=== PATIENT | female | born 1965 | race Caucasian/White ===

== ENCOUNTER 2022-05-28 13:21 | Outpatient (REF) | payer OTHER, SELFPAY ==
[2022-05-28 14:44] LABS: MANUAL DIFF FLAG NO
[2022-05-28 14:47] LABS: Basophils Percent Auto 0.5 % (0-2); Eosinophils Absolute Auto 0.1 X10*3/uL (0.0-0.4); Hematocrit 38.1 % (37.0-47.0); Hemoglobin 12.4 g/dl (12.0-16.0); Imm Gran Abs Auto 0.01 X10*3/uL (0.00-0.03); Imm Gran Pct Auto 0.2 % (0.0-0.4); Lymphocytes Absolute Auto 1.9 X10*3/uL (1.2-4.9); Lymphocytes Percent Auto 32.2 % (20-40); Mean Corpuscular HGB Conc 32.5 g/dl (31.0-35.0); Mean Corpuscular Hemoglobin 29.9 pg (27.0-33.0); Mean Corpuscular Volume 91.8 fL (80.0-98.0); Mean Platelet Volume 10.9 fL (9.4-12.3); Monocytes Absolute Auto 0.3 X10*3/uL (0.1-1.2); Monocytes Percent Auto 5.2 % (2-11); Neutrophils Absolute Auto 3.6 x10*3/uL (2.0-8.3); Neutrophils Percent Auto 60.9 % (45-73); Platelet Count 226 X10*3/uL (160-400); Red Blood Count 4.15 X10*6/uL (4.20-5.50); Red Cell Distribution Width 12.3 % (11.0-16.0)
[2022-05-28 16:17] LABS: Alanine Aminotransferase 11 U/L (0-31); Albumin Level 4.6 g/dL (3.5-5.0); Alkaline Phosphatase 114 U/L (39-117); Anion Gap 14 (12-20); Aspartate Amino Transferase 14 U/L (5-31); Bilirubin Total 0.4 mg/dL (0.0-1.0); Blood Urea Nitrogen 10 mg/dL (9-16); Calcium 9.6 mg/dL (8.4-10.2); Carbon Dioxide 27 mmol/L (22-29); Chloride 107 mmol/L (96-108); Estimated Glomerular Filt Rate > 60; Glucose Random 85 mg/dL (60-115); Potassium 4.3 mmol/L (3.3-5.1); Sodium 144 mmol/L (135-145); Total Protein 7.5 g/dL (6.5-8.0)
== END 2022-05-28 13:22 | disposition home or self-care (01) ==
LOC: HO.LAB 13:21
PROVIDERS: PCP Family Medicine Geriatric Medicine; Visit Provider Physician Assistant
DX: K83.8 Other specified diseases of biliary tract (principal); R10.9 Unspecified abdominal pain
CPT/HCPCS: 36415; 80053; 85025; 99202

== ENCOUNTER 2022-06-22 10:16 | Outpatient (REF) | payer OTHER, SELFPAY ==
--- NOTE | ~2022-06-22 | US_ITS ---
EXAMINATION: US ABDOMEN COMPLETE CLINICAL INFORMATION: Disease and biliary tract. COMPARISON: None TECHNIQUE: Real-time imaging of the abdominal viscera. FINDINGS: PANCREAS: Normal. ABDOMINAL AORTA: The proximal, mid, and distal segments are normal in caliber. INFERIOR VENA CAVA: Visualized portions are normal. LIVER: Normal. The liver is normal in size. The liver contour is normal. Parenchymal echogenicity is normal. No focal hepatic lesion. There is no intrahepatic biliary duct dilatation seen. GALLBLADDER: Gallbladder appears incompletely distended/partially contracted. Gallbladder wall is diffusely thickened measuring up to 0.7 cm in thickness. No echogenic shadowing gallstones are seen. No pericholecystic fluid. Question trace fluid/edema in the gallbladder wall. Small 5 mm anechoic cyst or diverticulum is noted in the wall the gallbladder as well. The patient did not have fatty sonographic Oates sign at time the examination per technologist report. COMMON BILE DUCT: Dilated measuring up to 0.9 cm in diameter. RIGHT KIDNEY: Normal. No hydronephrosis. No renal calculi or focal parenchymal lesions. The kidney measures 9 cm in maximum dimension. LEFT KIDNEY: Normal. No hydronephrosis or renal calculi. Small 1.9 cm anechoic simple cyst in the lower pole. The kidney measures 10.2 cm in maximum dimension. SPLEEN: Normal. The spleen measures 10.1 cm in maximum dimension. FREE FLUID: None. US/US abdomen complete IMPRESSION: 1. The gallbladder is incompletely distended with diffuse gallbladder wall thickening and question trace fluid/edema in the gallbladder wall. No shadowing gallstones are identified. The patient did not have a sonographic Oates sign at time of the examination. Correlate clinically for possibility of acalculous cholecystitis. 2. Mildly dilated common bile duct measuring up to 0.9 cm in diameter. Correlate with LFTs and consider further evaluation with MRCP or ERCP as clinically appropriate. 3. No intrahepatic biliary ductal dilation. 4. Normal sonographic appearance of the liver. 5. Small simple left renal cyst.
== END 2022-06-22 10:17 | disposition home or self-care (01) ==
LOC: HO.US 10:16
PROVIDERS: Visit Provider Physician Assistant
DX: K83.8 Other specified diseases of biliary tract (principal); R10.9 Unspecified abdominal pain
CPT/HCPCS: 76700

== ENCOUNTER 2022-12-05 08:41 | Outpatient (REF) | payer OTHER, SELFPAY ==
--- NOTE | ~2022-12-05 | US_ITS ---
EXAMINATION: US ABDOMEN COMPLETE CLINICAL INFORMATION: Dilated common bile duct. Abdominal pain. COMPARISON: Ultrasound abdomen complete 06/22/2022. TECHNIQUE: Real-time imaging of the abdominal viscera. FINDINGS: PANCREAS: Normal. ABDOMINAL AORTA: The proximal, mid, and distal segments are normal in caliber. INFERIOR VENA CAVA: Visualized portions are normal. LIVER: Normal. The liver is normal in size. The liver contour is normal. Parenchymal echogenicity is normal. No focal hepatic lesion. There is no intrahepatic biliary duct dilatation seen. GALLBLADDER: The gallbladder is contracted with no echogenic stones seen however limited. Gallbladder wall is thickened measuring 0.93 cm. Within the thickened king there are 5 mm anechoic cystic areas and calcification with adenomyomatosis. Findings suspicious for chronic acalculous cholecystitis. COMMON BILE DUCT: Normal in caliber measuring 1.0 cm in diameter distally and 0.68 cm proximally. RIGHT KIDNEY: Normal. No hydronephrosis. No renal calculi or focal parenchymal lesions. The kidney measures 9.7 cm in maximum dimension. LEFT KIDNEY: No hydronephrosis or renal calculi. The kidney measures 10.5 cm in maximum dimension. There is an anechoic cyst lower pole measuring 1.8 x 1.9 x 1.8 cm. SPLEEN: Normal. The spleen measures 10.2 cm in maximum dimension. FREE FLUID: None. US/US abdomen complete IMPRESSION: Contracted gallbladder with thickened king with cystic areas, calcification and adenomyomatosis. These findings are unchanged from previous ultrasound 06/22/2022 and may represent chronic cholecystitis or chronic gallbladder disease. Dilated distal CBD measuring 1 cm. Anechoic cyst lower pole left kidney.
== END 2022-12-05 08:42 | disposition home or self-care (01) ==
LOC: HO.HMGCX 08:41
PROVIDERS: PCP Registered Nurse; Visit Provider Physician Assistant
DX: K83.8 Other specified diseases of biliary tract (principal); R10.9 Unspecified abdominal pain
CPT/HCPCS: 76700

== ENCOUNTER 2022-12-24 12:57 | Outpatient (REF) | payer OTHER, SELFPAY ==
[2022-12-24 14:25] LABS: MANUAL DIFF FLAG NO
[2022-12-24 15:08] LABS: Basophils Percent Auto 0.4 % (0-2); Eosinophils Absolute Auto 0.2 X10*3/uL (0.0-0.4); Eosinophils Percent Auto 2.3 % (0-4); Hematocrit 40.9 % (37.0-47.0); Hemoglobin 13.2 g/dl (12.0-16.0); Imm Gran Abs Auto 0.02 X10*3/uL (0.00-0.03); Imm Gran Pct Auto 0.3 % (0.0-0.4); Lymphocytes Percent Auto 43.1 % (20-40); Mean Corpuscular HGB Conc 32.3 g/dl (31.0-35.0); Mean Corpuscular Hemoglobin 30.3 pg (27.0-33.0); Mean Corpuscular Volume 93.8 fL (80.0-98.0); Mean Platelet Volume 11.1 fL (9.4-12.3); Monocytes Absolute Auto 0.4 X10*3/uL (0.1-1.2); Monocytes Percent Auto 6.1 % (2-11); Neutrophils Absolute Auto 3.3 x10*3/uL (2.0-8.3); Neutrophils Percent Auto 47.8 % (45-73); Platelet Count 267 X10*3/uL (160-400); Red Blood Count 4.36 X10*6/uL (4.20-5.50); White Blood Count 6.9 X10*3/uL (4.8-10.8)
[2022-12-24 16:03] LABS: Alanine Aminotransferase 15 U/L (0-31); Albumin Level 4.5 g/dL (3.5-5.0); Alkaline Phosphatase 122 U/L (39-117); Anion Gap 10 (12-20); Aspartate Amino Transferase 17 U/L (5-31); Bilirubin Total 0.5 mg/dL (0.0-1.0); Blood Urea Nitrogen 16 mg/dL (9-16); Calcium 9.5 mg/dL (8.4-10.2); Carbon Dioxide 28 mmol/L (22-29); Chloride 109 mmol/L (96-108); Estimated Glomerular Filt Rate > 60; Glucose Random 73 mg/dL (60-115); Potassium 4.6 mmol/L (3.3-5.1); Sodium 142 mmol/L (135-145); Total Protein 7.4 g/dL (6.5-8.0)
== END 2022-12-24 12:58 | disposition home or self-care (01) ==
LOC: HO.LAB 12:57
PROVIDERS: PCP Registered Nurse; Visit Provider Physician Assistant
DX: R10.9 Unspecified abdominal pain (principal); K83.8 Other specified diseases of biliary tract; K58.9 Irritable bowel syndrome, unspecified
CPT/HCPCS: 36415; 80053; 85025; 99212

== ENCOUNTER → 2023-02-06 07:52 | Outpatient (REF) | payer OTHER, SELFPAY ==
--- NOTE | ~2023-02-06 | NM_ITS ---
EXAMINATION: BILIARY TRACT IMAGING STUDY WITH CCK CLINICAL INFORMATION: Unspecified abdominal pain.. COMPARISON: No previous biliary scan is available for comparison. Abdominal ultrasound dated 12/05/2022 is available for comparison.. TECHNIQUE: Serial gamma scintillation camera images were obtained over the abdomen for a total observation period of 90 minutes following the intravenous administration of 5 mCi Tc-99m Mebrofenin. FINDINGS: There is good concentration of activity in the liver by 5 minutes post injection. Biliary activity is visualized by 10 minutes. The gallbladder is well visualized by 25 minutes. Small bowel is well visualized by 20 minutes. At 60 minutes post radiopharmaceutical injection, a 30-minute infusion of 1.5 micrograms Sincalide was then begun and an additional 40 minutes of images were obtained. There is good emptying of the gallbladder. By the end of the study there is good clearance of activity from the liver and visualization of diffuse small bowel activity. The calculated gallbladder ejection fraction is 56% (normal gallbladder ejection fraction is greater than 35%). NM/NM hepatobiliary w pharm IMPRESSION: Visualization of the gallbladder is evidence of a patent cystic duct and strong evidence against the diagnosis of acute cholecystitis. The common bile duct is patent. Gallbladder emptying and ejection fraction are normal. Liver function appears normal.
== END ==
LOC: HO.NUCMED 07:52
PROVIDERS: Visit Provider Physician Assistant
DX: R10.9 Unspecified abdominal pain (principal); K83.8 Other specified diseases of biliary tract
CPT/HCPCS: 78227; A9537; J2805

== ENCOUNTER 2023-03-11 14:31 | Outpatient (AMB) | payer OTHER, SELFPAY ==
--- NOTE | 2023-03-11 14:33 | A.OFFVIS_ITS ---
Intake Vital Signs 03/11/23 14:43 Height 5 ft 3 in Weight 159 lb BMI 28.2 BP 134/65 Blood Pressure Location Lt brachial Position Sitting Pulse 56 Intake Visit Reasons: f/u hida scan Intake Note: Patient follow up for HIDA scan results. Patient cc: acid reflex and denies any other GI issues. Church History Professor Required: No Accompanied by: Self / Same As Patient Allergies ibuprofen [Motrin] Allergy (Unknown, Verified 03/11/23 14:33) upset stomach No Known Allergies [No Known Allergies*] Allergy (Verified 03/11/23 14:33) Medication List - Last Reconciled 03/11/23 by Caron Griffin PA-C acetaminophen ER (Arthritis Pain Relief (acetaminophen) ER) 650 mg PO Q8H cetirizine 10 mg PO DAILY diclofenac sodium 1% 2 grams topical QID fluoxetine 40 mg PO QAM prazosin 0 mg PO quetiapine 100 mg PO BEDTIME quetiapine 200 mg PO BEDTIME zolpidem 10 mg PO BEDTIME PRN HPI HPI Comments History of Present Illness Details A 57 y/o female with vague GI complaints- abnormal U/S mildly dilated CBD- reviewed with Dr. Gudino- f/u after HIDA She has a good appetite- intermittent reflux Last colonoscopy 2016 inadequate prep- Sometimes abdominal pain comes and go wonders, nothing specific makes it better or worse. No nausea or vomiting has not had fever or chills-no weight loss PFSH Surgical History Hx of knee surgery Hx of shoulder surgery Hx of tubal ligation Family History Mother Heart disease Breast CA Sister Cancer Social History Household Members: Family Alcohol intake: never Patient Tobacco Use Status: Never used Tobacco Substance Use Type: Marijuana Review of Systems Const All systems reviewed & are unremarkable except as noted in HPI and below Card Denies chest pain and Denies dyspnea Resp Denies dyspnea GI Reports abdominal pain, Denies hematochezia, Denies change in bowel habits, Denies nausea and Denies vomiting Psych Reports anxiety Physical Exam Vital Signs: Last Vital Signs Pulse 56 03/11/23 14:43 BP 134/65 03/11/23 14:43 BMI result Body Mass Index 28.2 Const General: healthy appearing and comfortable Orientation/consciousness: patient oriented x3 Limitations: no limitations GI Palpation (GI): Soft to palpation and Tenderness to palpation present (GI) (mild non specific) Skin General skin exam: no rashes or lesions noted Neuro General: patient oriented x3 Extrem General: Yes full ROM Psych Appearance: grossly normal Mental Status: mental status grossly normal Speech and movement: Normal speech and movement present Affect: normal affect Attitude: cooperative Thought content: Normal thought content present Results Reviewed Results Reviewed: GALLBLADDER: The gallbladder is contracted with no echogenic stones seen however limited. Gallbladder wall is thickened measuring 0.93 cm. Within the thickened king there are 5 mm anechoic cystic areas and calcification with adenomyomatosis. Findings suspicious for chronic acalculous cholecystiti12/24/22- f/u with- NM/NM hepatobiliary w pharm IMPRESSION: Visualization of the gallbladder is evidence of a patent cystic duct and strong evidence against the diagnosis of acute cholecystitis. The common bile duct is patent. Gallbladder emptying and ejection fraction are normal. Liver function appears normal. Assessment & Plan Assessment & Plan (1) Abdominal pain: Comment: note to T-agree his weight until EGD/colonoscopy ppi EGD/ colo Code(s): R10.9 - Unspecified abdominal pain Plan: EGD colonoscopy Discussed procedure, the risks, need for escort due to anesthesia (2) Dilated cbd, acquired: Comment: Dilated CBD, normal liver enzymes CT at [facility]-will get ultrasound repeat labs, if liver enzymes are elevated will get MRCP Code(s): K83.8 - Other specified diseases of biliary tract Plan EGD/ col- DR. GUDINO pls MiraLax Gatorade prep ppi Orders: Orders EGD/[place] Combo - GI Use Only 03/11/23 Medications: New omeprazole 20 mg PO DAILY 30 caps 5RF bisacodyl (Dulcolax (bisacodyl)) Take 2 tablets by mouth at 12:00pm the day before your procedure. 10 mg (2 x 5 mg) PO ONCE 2 tabs 0RF colonoscopy prep 1 day Z12.11 - Encounter for screening for malignant neoplasm of colon polyethylene glycol 3350 (Miralax) Take as directed by mouth the day before your procedure. 238 grams PO ONCE 238 grams 0RF 1 day Patient Instructions: 57-year-old female chronic abdominal pain-reviewed ultrasound dilated CBD, HIDA scan within normal range normal liver enzymes. Acid reflux, daily PPI, avoid culprits, reviewed reflux precautions Due for colonoscopy Will schedule for EGD and colon discussed procedures, risks, need for escort due to anesthesia. Encouraged to call with questions or concerns Coding Level of Care Code Est Pt Level 4 (29443) Diagnoses Abdominal pain R10.9 Dilated cbd, acquired K83.8 Time Spent (min) 30
[2023-03-11 14:43] VITALS: BP 134/65; PULSE 56; BMI 28.2
== END 2023-03-11 15:47 | disposition home or self-care (01) ==
PROVIDERS: PCP Registered Nurse; Visit Provider Physician Assistant
DX: R10.9 Unspecified abdominal pain (principal); K83.8 Other specified diseases of biliary tract
CPT/HCPCS: 99214

== ENCOUNTER → 2023-03-11 14:31 | Outpatient (BNVA) | payer OTHER, SELFPAY | PROVIDERS: PCP Registered Nurse; Visit Provider Physician Assistant | DX: K83.8 Other specified diseases of biliary tract (principal); R10.9 Unspecified abdominal pain | CPT/HCPCS: 99212 ==

== ENCOUNTER 2025-02-12 12:45 | Outpatient (AMB) | payer OTHER, SELFPAY ==
--- NOTE | 2025-02-12 12:52 | A.OFFVIS_ITS ---
Vital Signs 02/12/25 13:03 Height 5 ft 3 in Weight 153 lb BMI 27.1 BP 118/62 Blood Pressure Location Lt brachial Position Sitting Pulse 58 Pulse Source Pulse Oximeter Pulse Oximetry (%) 100 Oxygen Delivery Method Room Air Intake Visit Reasons: pre colonoscopy/Caron pt Intake Note: Patient complex follow up for colonoscopy screening. Caron jonah was 03/11/2023. Patient cc: Instructional Developer Required: Yes Instructional Developer Services: Instructional Developer Offered & Declined Accompanied by: Daughter Allergies ibuprofen [Motrin] Allergy (Unknown, Verified 02/12/25 12:53) upset stomach Medication List - Last Reconciled 02/12/25 by Lesley Nelson CNP acetaminophen ER (Arthritis Pain Relief (acetaminophen) ER) 650 mg PO Q8H bisacodyl 5 mg PO ONCE 1 day budesonide-formoterol 80-4.5 mcg/actuation inhalation cetirizine 10 mg PO DAILY cholecalciferol (vitamin D3) (Vitamin D3) 25 mcg PO DAILY clonazepam mg PO diclofenac sodium 1% 2 grams topical QID famotidine 20 mg PO DAILY PRN fluoxetine 40 mg PO QAM fluticasone propionate 50 mcg/actuation intranasal omeprazole 20 mg PO DAILY polyethylene glycol 3350 (Miralax) 238 grams PO ONCE prazosin 10 mg PO BEDTIME quetiapine 300 mg PO BID Saccharomyces boulardii (Probiotic (S.boulardii)) 250 mg PO BID sennosides (senna) 8.6 - 17.2 mg PO BEDTIME PRN zolpidem 10 mg PO BEDTIME PRN HPI HPI pre colonoscopy/Caron pt: Details: Patient is a 59-year-old female with PMH of obesity, asthma, insomnia, anxiety and GERD . Last visit with JOSELYN Hilton 03/11/2023 for follow-up after ultra sound. Patient is accompanied by daughter who translating during this visit. She is here today for ab pain and pre-colonoscopy screening. Colonoscopy was previously scheduled in 2023 but was not completed, secondary to patient's fears. Patient is agreeable to proceed with colonoscopy screening at this time. This will be her second colonoscopy; however the first in 2016 was not complete due to poor prep. Victoria reports ongoing acid reflux and abdominal pain, with intermittent episodes of vomiting without burning sensations. Last month, she experienced three days where she could not eat due to vomiting after certain foods, and reported her stomach felt swollen and hard to touch. The pain and vomiting seem to be sporadic but associated with the ingestion of specific, yet unidentified, foods. She denies blood in vomit but reports a decrease in appetite during symptomatic days. Victoria's symptoms began back in 2022 with similar complaints, and she is currently an unidentified medication sporadically for relief. She also reports loose stools during pain bouts and otherwise normal type 4 stools, but no blood in stool or hemorrhoids. Past imaging has shown some concerns regarding gallbladder inflammation, but follow-up scans indicated no acute issues. Patient denies: fever/chills, appetite changes, pyrosis, dysphasia, unintentional wt loss, ab pain, or melena/hematochezia. She has a history of asthma, managed with an inhaler prescribed by her PCP, and reports stable respiratory status without recent exacerbations. SOCIAL HISTORY: - Diet: Inconsistent breakfast intake; breakfast often triggers GI symptoms - Alcohol: Denies - Tobacco: Denies - Drug Use: Daily marijuana (inhaled) - family hx as below -denies personal hx of CA -tolerated anesthesia in the past without difficulty. FOR[facility]LY [facility], [facility] Medical History (Updated 02/12/25 @ 13:57 by Lesley Nelson CNP) Colon cancer screening GERD (gastroesophageal reflux disease) Abdominal pain Surgical History History of esophagogastroduodenoscopy (EGD) H/O colonoscopy Hx of knee surgery Hx of tubal ligation Hx of shoulder surgery Family History (Updated 02/12/25 @ 13:30 by Lesley Nelson CNP) Mother Heart disease Breast CA Sister Cancer Social History Household Members: Family Alcohol intake: never Patient Tobacco Use Status: Never used Tobacco Substance Use Type: Marijuana Review of Systems Const Reports as per HPI ENT Reports as per HPI Card Reports as per HPI Resp Reports as per HPI GI Reports as per HPI Reports as per HPI Physical Exam Vital Signs: Last Vital Signs Pulse 58 02/12/25 13:03 BP 118/62 02/12/25 13:03 Pulse Ox 100 02/12/25 13:03 Oxygen Delivery Method Room Air 02/12/25 13:03 BMI result Body Mass Index 27.1 Const General: healthy appearing, no acute distress and well developed Nutritional Appearance: well nourished Orientation/consciousness: patient oriented x3 HEENT Head: Yes normal to inspection, Yes normocephalic and Yes atraumatic Face and sinus: Yes normal facial exam Eyes General: appearance normal, both eyes and all related structures Neck Neck: Yes normal visual inspection Resp Effort & Inspection: normal respiratory effort, able to speak in complete sentences, no tracheal deviation and symmetric chest movement Auscultation: clear to auscultation bilaterally Cardio Jugular venous distension: no JVD Rate: regular rate Rhythm: regular rhythm Heart sounds: S1 normal heart sound present, S2 normal heart sound present, no gallops and no murmurs GI Inspection: Yes normal to inspection, No distended and Yes other (mild ab bloating) Palpation (GI): Soft to palpation, not firm, Tenderness to palpation present (GI) (generalized ) and No hepatosplenomegaly present Auscultation: normal bowel sounds Neuro General: patient oriented x3 Gait exam (Neuro): Normal gait present Psych Appearance: grossly normal Mental Status: mental status grossly normal Speech and movement: Normal speech and movement present Affect: normal affect Attitude: cooperative Thought process: Normal thought process present Thought content: Normal thought content present Insight: Good insight present (Psych) Judgement: Good judgement present (Psych) Results Reviewed Results Reviewed: Date of Service: 02/06/23 Procedure(s): NM hepatobiliary w pharm Accession Number(s): [id number] cc: Caron Griffin PA-C~ EXAMINATION: BILIARY TRACT IMAGING STUDY WITH CCK CLINICAL INFORMATION: Unspecified abdominal pain.. COMPARISON: No previous biliary scan is available for comparison. Abdominal ultrasound dated 12/05/2022 is available for comparison.. TECHNIQUE: Serial gamma scintillation camera images were obtained over the abdomen for a total observation period of 90 minutes following the intravenous administration of 5 mCi Tc-99m Mebrofenin. FINDINGS: There is good concentration of activity in the liver by 5 minutes post injection. Biliary activity is visualized by 10 minutes. The gallbladder is well visualized by 25 minutes. Small bowel is well visualized by 20 minutes. At 60 minutes post radiopharmaceutical injection, a 30-minute infusion of 1.5 micrograms Sincalide was then begun and an additional 40 minutes of images were obtained. There is good emptying of the gallbladder. By the end of the study there is good clearance of activity from the liver and visualization of diffuse small bowel activity. The calculated gallbladder ejection fraction is 56% (normal gallbladder ejection fraction is greater than 35%). NM/NM hepatobiliary w pharm IMPRESSION: Visualization of the gallbladder is evidence of a patent cystic duct and strong evidence against the diagnosis of acute cholecystitis. The common bile duct is patent. Gallbladder emptying and ejection fraction are normal. Liver function appears normal. Date of Service: 12/05/22 Procedure(s): US abdomen complete Accession Number(s): [id number] cc: Caron Griffin EXAMINATION: US ABDOMEN COMPLETE CLINICAL INFORMATION: Dilated common bile duct. Abdominal pain. COMPARISON: Ultrasound abdomen complete 06/22/2022. TECHNIQUE: Real-time imaging of the abdominal viscera. FINDINGS: PANCREAS: Normal. ABDOMINAL AORTA: The proximal, mid, and distal segments are normal in caliber. INFERIOR VENA CAVA: Visualized portions are normal. LIVER: Normal. The liver is normal in size. The liver contour is normal. Parenchymal echogenicity is normal. No focal hepatic lesion. There is no intrahepatic biliary duct dilatation seen. GALLBLADDER: The gallbladder is contracted with no echogenic stones seen however limited. Gallbladder wall is thickened measuring 0.93 cm. Within the thickened king there are 5 mm anechoic cystic areas and calcification with adenomyomatosis. Findings suspicious for chronic acalculous cholecystitis. COMMON BILE DUCT: Normal in caliber measuring 1.0 cm in diameter distally and 0.68 cm proximally. RIGHT KIDNEY: Normal. No hydronephrosis. No renal calculi or focal parenchymal lesions. The kidney measures 9.7 cm in maximum dimension. LEFT KIDNEY: No hydronephrosis or renal calculi. The kidney measures 10.5 cm in maximum dimension. There is an anechoic cyst lower pole measuring 1.8 x 1.9 x 1.8 cm. SPLEEN: Normal. The spleen measures 10.2 cm in maximum dimension. FREE FLUID: None. US/US abdomen complete IMPRESSION: Contracted gallbladder with thickened king with cystic areas, calcification and adenomyomatosis. These findings are unchanged from previous ultrasound 06/22/2022 and may represent chronic cholecystitis or chronic gallbladder disease. Dilated distal CBD measuring 1 cm. Anechoic cyst lower pole left kidney. Assessment & Plan Assessment & Plan (1) Colon cancer screening: Comment: 04/05/2016 colonoscopy ( Dr. Tanner)-incomplete secondary to poor prep Code(s): Z12.11 - Encounter for screening for malignant neoplasm of colon Category: Medical Plan: Colonoscopy previously scheduled but not completed; patient due for routine screening and evaluation of GI symptoms. Medications: -prescriptions for laxative tablets and MiraLax sent to pharmacy; instructions for Gatorade purchase and clear liquid diet given. Patient educated on scheduling process, procedure preparation, including avoiding certain foods and ensuring clear liquid intake Advised on necessity for ride post-procedure due to sedation. (2) Abdominal pain: Comment: 04/05/16 EGD-hiatal hernia Code(s): R10.9 - Unspecified abdominal pain Category: Medical Qualifiers: Abdominal location: epigastric Qualified Code(s): R10.13 - Epigastric pain Plan: Ongoing upper GI symptoms with episodic vomiting, abdominal pain, and stool changes. Previous imaging (December 2022 US) showed mild CBD dilation; January 2023 HIDA scan was normal. Additional Tests: - CT abd/pelvis with IV and PO contrast for further evaluation of abdominal pain and to assess other GI organs beyond prior US - Upper endoscopy (EGD) at time of colonoscopy to assess for esophagitis, gastritis, polyps, or neoplastic changes - Labs: Renal function (prior to contrast), inflammatory markers - Stool studies for inflammation Medications: - Start omeprazole 20mg PO daily - Famotidine PRN for breakthrough symptoms Encouraged to take omeprazole as prescribed, taken at least 30-60 minutes before a meal. Education on GERD prevention : -Advised against heavy meals; encouraged small, frequent meals instead of large ones. - Instructed to remain upright for 2?3 hours after eating. - Advised to avoid late-night meals, spicy foods, caffeine, alcohol, known dietary triggers, and tight-fitting clothing. - Emphasis placed on gradual implementation of lifestyle changes to improve adherence and symptom control. Plan follow up 8 weeks or sooner as needed Time: I spent a total of 45 minutes on the date of encounter which includes: Preparing to see the patient (reviewed previous documentation, test results and medical history) Performing a medically appropriate exam and/or evaluation Ordering medications, tests, and procedures Documenting clinical information in the health record Orders: Orders Comprehensive [place]. Panel Fast Today R10.9 - Unspecified abdominal pain Calprotectin, Fecal Today R19.7 - Diarrhea, unspecified C Reactive Protein Today R10.9 - Unspecified abdominal pain CT abdomen pelvis w IV con Today R10.9 - Unspecified abdominal pain Complete Blood Count Auto Diff Today R10.9 - Unspecified abdominal pain IRON PROFILE Today R10.9 - Unspecified abdominal pain Transglutaminase IgA Today R10.9 - Unspecified abdominal pain Medications: New polyethylene glycol 3350 (Miralax) per colonoscopy prep instructions 238 grams PO ONCE 238 grams 0RF omeprazole Take one tablet daily. Best taken 30 minutes before meal 20 mg PO DAILY 90 caps 1RF famotidine Take one tablet daily as needed for acid reflux 20 mg PO DAILY PRN 90 tabs 1RF GERD bisacodyl Take four tablets once for 1 day per colonoscopy instructions 5 mg PO ONCE 1 day 4 tabs 0RF Coding Level of Care Code Established Pt Est Pt Level 4 (05985) Patient Type Established Diagnoses Colon cancer screening Z12.11 Epigastric pain R10.13 Abdominal location: epigastric
[2025-02-12 13:03] VITALS: BP 118/62; PULSE 58; O2SAT 100; BMI 27.1
--- OUTSIDE RECORDS SUMMARY | 2025-02-12 13:12 | XMS_ITS | Data Portability ---
Author Organization [employer], [facility] Address [address] [place] [address] Care Team Providers Care Oil Well Shooter Name Role Phone HIM CCA OTHER Assessment Encounter Date Assessment Date Assessment LastModified by Organization Details LastModified Time 11/11/2024 11/11/2024 I have reviewed and agree with the Assessment and Plan as documented by the Filter Tender Jelly. I provided real-time medical direction via phone for this encounter, and was available for additional phone based assistance as needed. I would add/emphasize: Patient seen for 1 day of NVD and post emesis epigastric discomfort. Seems to be improving. Has has similar e/o in past. Now tolerating PO soup. Epigastric pain described as burning and c/w hx of GERD for which she is on PPI. AVSS and well appearing per report. COVID/Flu run by medic negative. Given minimal abd TTP, reassuring vitals and exam doubt acute life threatening abdominal process. SUspect most likely self limiting GI illness. Pt desirous of home management. Will add sucrafate PRN to GI regimen. Encourage pushing small volume frequent fluids and monitoring of sxs at home. Red flags for ED presentation reviewed by medic. Entirety of visit conducted with the aid of medical language specialist (Grenadian) pallfather Not available 11/11/2024 17:57:49 11/17/2024 11/17/2024 I provided real -time medical direction via phone for this encounter, and was available for additional phone based assistance as needed. I have reviewed and agree with the Assessment and Plan as documented by the Filter Tender Jelly. We discussed the diagnostic uncertainty of home visits and the risk associated with this. In this case the patient and I felt this to be an acceptable and reasonable amount of risk given the benefit of avoiding an ED visit. Advised cannot tell what is causing the rash- can treat s/s. The patient given the opportunity to ask questions. Advised close f/u with pcp may need derm or allergy referral- if develops difficulty swallowing swollen lips/tongue/CP/s evere SOB/turning blue/uncontrolle d n/v/d AMS/ syncope/ hi fever to call 911- verbalized understanding of instruction [email or web address] Not available 11/17/2024 13:09:13 Plan of Treatment Reminders Order Date Submit Date Provider Last Modified By Organization Details Last Modified Time Details Appointments None recorded. Lab rapid SARS CoV 2 Ag, QL IA, respiratory specimen 2024 025 [facility], [address] [place] [address], [phone] 5 16:13:35 rapid flu (A+B) [address], [address] 5 16:13:54 cmp, whole blood + beny [address], [address] 19:18:47 Referral None recorded. Procedures None recorded. Surgeries None recorded. Imaging None recorded. Medication Orders prednisone 20 mg tablet 2024 025 [email or web address] [id number] [address] [place], [address], 5 13:06:51 prednisone 20 mg tablet 2024 025 [id number] [address] [place], [address], 5 13:06:53 hydroxyzine HCl 25 mg tablet 2024 025 [facility] #[id number], [address] [place], [address], 5 13:06:53 triamcinolo ne acetonide 0.1 % topical ointment 2024 025 [facility] #[id number], [address] [place], [address], 5 13:06:54 sucralfate 100 mg/mL oral suspension 2024 025 [facility] #[id number], [address] [place], [address], 5 16:07:43 ondansetron HCl (PF) 4 mg/2 mL injection solution 2021 022 [email or web address] Not available 19:17:11 Imodium A-D 2 mg capsule 2021 022 [email or web address] Not available 19:17:11 ondansetron 4 mg disintegrat ing tablet 2021 022 [facility] #[id number], [address] [place], [address], 19:17:13 Patient TargetsNo targets recorded. Patient InstructionsNo instructions recorded. Reason for Referral None Reported. Results Created Date Observation Date Name Description Value Unit Range Abnormal Flag Note LastModifiedBy Organization Detail LastModifiedTime 03/02/20 22 03/02/2022 cmp, whole blood + picco lo ALB 4.3 Not Available [facility] - [facility] [address], [address] 03/02/2022 19:17:18 03/02/20 22 03/02/2022 cmp, whole blood + picco lo ALP 129 Not Available [facility] [address], [address] 03/02/2022 19:17:18 03/02/20 22 03/02/2022 cmp, whole blood + picco lo ALT 12 Not Available [facility] [address], [address] 03/02/2022 19:17:18 03/02/20 22 03/02/2022 cmp, whole blood + picco lo AST 26 Not Available [facility] [address], [address] 03/02/2022 19:17:18 03/02/20 22 03/02/2022 cmp, whole blood + picco lo BUN 13 Not Available [facility] [address], [address] 03/02/2022 19:17:18 03/02/20 22 03/02/2022 cmp, whole blood + picco lo Ca 9.8 Not Available [facility] [address], [address] 03/02/2022 19:17:18 03/02/20 22 03/02/2022 cmp, whole blood + picco lo CI- normal Not Available [facility] [address], [address] 03/02/2022 19:17:18 03/02/20 22 03/02/2022 cmp, whole blood + picco lo CRE 0.9 Not Available [facility] [address], [address] 03/02/2022 19:17:18 03/02/20 22 03/02/2022 cmp, whole blood + picco lo GLU 96 Not Available [facility] [address], [address] 03/02/2022 19:17:18 03/02/20 22 03/02/2022 cmp, whole blood + picco lo K+ 3.6 Not Available [facility] [address], [address] 03/02/2022 19:17:18 03/02/20 22 03/02/2022 cmp, whole blood + picco lo Na+ 146 Not Available [facility] [address], [address] 03/02/2022 19:17:18 03/02/20 22 03/02/2022 cmp, whole blood + picco lo TBIL 0.7 Not Available [facility] [address], [address] 03/02/2022 19:17:18 03/02/20 22 03/02/2022 cmp, whole blood + picco lo tCO2 24 Not Available [facility] [address], [address] 03/02/2022 19:17:18 03/02/20 22 03/02/2022 cmp, whole blood + picco lo TP 8.4 Not Available [facility] [address], [address] 03/02/2022 19:17:18 11/12/19 25 11/11/2024 rapid flu (A+B) Flu negati ve Not Available [facility] - [facility] [address] [place] [address], [phone] 11/11/2024 15:04:36 11/12/19 25 11/11/2024 rapid SARS CoV 2 Ag, QL IA, respi rator y speci men rapid SARS CoV 2 Ag, QL IA, respiratory specimen negati ve Not Available [facility] - [facility] [address] [place] [address], [phone] 11/11/2024 15:04:32 Result Notes None recorded. Medical Equipment None Reported. Allergies No known drug allergies Medications Name Sig Start Date Stop Date Status Note LastModified by Organization Details LastModified Time fluoxetine 40 mg capsule TOME 2 C PSULAS POR V A ORAL TODOS LOS D EN LA MA ART active Not Available Not Available No t Available ketoconazole 2 % shampoo APPLY TO AFFECTED SKIN, LEAVE ON FOR 5 MINUTES, THEN RINSE EXTERNALLY ONCE A DAY 3 DAYS active Not Available Not Available No t Available quetiapine 300 mg tablet TOME 1 TABLETA POR V A ORAL DOS VECES AL D A active Not Available Not Available No t Available cetirizine 10 mg tablet TOME 1 TABLETA POR V A ORAL TODOS LOS D FOR 90 DAYS active Not Available Not Available No t Available senna 8.6 mg tablet TOME CONNER O DOS TABLETAS POR V A ORAL AL ACOSTARSE CUANDO SEA NECESARIO FOR CONSTIPATIO N active Not Available Not Available No t Available sucralfate 100 mg/mL oral suspension TAKE 10 ML POR V A ORAL DOS VECES AL D A CUANDO SEA NECESARIO active Not Available Not Available No t Available meloxicam 15 mg tablet TOME CONNER TABLETA TODOS LOS D CUANDO SEA NECESARIO FOR 30 DAYS active Not Available Not Available Not Available prednisone 20 mg tablet TOME DOS TABLETAS POR V A ORAL TODOS LOS D CON ALIMENTO POR 5 D active Not Available Not Available N ot Available clonazepam 0.5 mg tablet TOME 1 TABLETA POR V A ORAL SANDRA VECES AL D A CUANDO SEA NECESARIO active Not Available Not Available No t Available quetiapine 200 mg tablet TOME 1 TABLETA POR V A ORAL DOS VECES AL D A active Not Available Not Available No t Available omeprazole 40 mg capsule,ainsley yed release TOME CONNER C PSULA TODOS LOS D FOR 30 DAYS active Not Available Not Available Not Available quetiapine 100 mg tablet TOME CONNER TABLETA TODOS LOS D EN LA MA ART active Not Available Not Available No t Available prazosin 5 mg capsule TOME 2 C PSULAS POR V A ORAL TODOS LOS D AL ACOSTARSE active Not Available Not Available No t Available famotidine 20 mg tablet TAKE 1 TABLET NEEDED FOR REFLUX/ACID ORALLY TWICE A DAY 30 DAYS active Not Available Not Available No t Available pantoprazole 40 mg tablet,delay ed release TOME CONNER TABLETA TODOS LOS D FOR 30 DAYS active Not Available Not Available No t Available triamcinolon e acetonide 0.1 % topical ointment APPLY A THIN LAYER TOPICALLY TO AFFECTED AREA TWO TIMES A DAY FOR 7 DAYS active Not Available Not Available N ot Available clotrimazole -betamethaso ne 1 %-0.05 % topical cream APLIQUE AL JORGE AFECTADA DOS VECES AL D A FOR 2 WEEKS AND SURROUNDING AREAS active Not Available Not Available No t Available Gas Relief Extra Strength 125 mg capsule TOME 1 C PSULA POR V A ORAL CUATRO VECES AL JOANA DESPUES DE LAS COMIDAS ANA NECESARIO PARA GASES. active Not Available Not Available Not Available hydroxyzine HCl 25 mg tablet TOME 1 TABLETA POR V A ORAL CUATRO VECES AL D A POR 7 D active Not Available Not Available No t Available zolpidem 10 mg tablet TOME 1 TABLETA POR V A ORAL TODOS LOS D AL ACOSTARSE CUANDO SEA NECESARIO PARA DORMIR active Not Available Not Available Not Available albuterol sulfate HFA 90 mcg/actuatio n aerosol inhaler INHALE DANDO DOS SOPLIDOS CADA CUATRO A SEIS HORAS CUANDO SEA NECESARIO COUGH/WHEEZ E/SHORT BREATH active Not Available Not Available No t Available ondansetron 4 mg disintegrati ng tablet PLACE 1 TABLET BY TRANSLINGUA L ROUTE DOS VECES AL D A active Not Available Not Available No t Available fluticasone propionate 50 mcg/actuatio n nasal spray,suspen swati ROCIAR 1 VEZ EN CADA VENTANILLA DE LA NARIZ TODOS LOS D FOR 90 DAYS active Not Available Not Available No t Available Vitamin D3 25 mcg (1,000 unit) capsule TAKE 1 CAPSULE BY MOUTH ONCE DAILY. active Not Available Not Available No t Available Arthritis Pain Relief (acetaminoph en) ER 650 mg tablet,exten d release TOME DOS TABLETAS POR V A ORAL CADA OCHO HORAS CUANDO SEA NECESARIO PARA EL DOLOR active Not Available Not Available No t Available ondansetron HCl (PF) 4 mg/2 mL injection solution Take 4 mg by injection route. 2021 active Not Available Not Available Not Avai lable budesonide-f ormoterol HFA 80 mcg-4.5 mcg/actuatio n aerosol inhaler PLEASE SEE ATTACHED FOR DETAILED DIRECTIONS active Not Available Not Available N ot Available calcium 1,000 mg (as carbonate)-v itamin D3 20 mcg (800 unit) tablet TOME 1 TABLETA POR V A ORAL TODOS LOS D WITH A MEAL FOR 90 DAYS active Not Available Not Available No t Available Probiotic (S.boulardii ) 250 mg capsule TOME 1 C PSULA POR V A ORAL DOS VECES AL D A active Not Available Not Available No t Available Imodium A-D 2 mg capsule Take 2 mg by oral route. 2021 active Not Available Not Available Not Avai lable Vitals Date Recorded Heart rate Body weight Body temperature Respiratory rate Oxygen saturation Oxygen saturation in Arterial blood by Pulse oximetry Body height Systolic blood pressure Diastolic blood pressure Provider Name and Address Organization Details Last Updated DateTime 5 62 /min 92767.6 g 98 [degF] 14 /min 98 % 98 % 152.4 cm 152 mm[Hg] 89 mm[Hg] Not Available [employer] 5 15:03:10 Date Recorded Respiratory rate Oxygen saturation Oxygen saturation in Arterial blood by Pulse oximetry Heart rate Body temperature Systolic blood pressure Diastolic blood pressure Provider Name and Address Organization Details Last Updated DateTime 5 16 /min 99 % 99 % 67 /min 98.4 [degF] 118 mm[Hg] 70 mm[Hg] Not Available [employer] 5 12:54:56 Date Recorded Body weight Body temperature Heart rate Respiratory rate Oxygen saturation Oxygen saturation in Arterial blood by Pulse oximetry Body height Body height Oxygen saturation Oxygen saturation in Arterial blood by Pulse oximetry Body weight Body temperature Heart rate Respiratory rate Systolic blood pressure Diastolic blood pressure Systolic blood pressure Diastolic blood pressure Provider Name and Address Organization Details Last Updated DateTime 2 82190.6 8 g 98.6 [degF] 85 /min 18 /min 98 % 98 % 160.02 cm 160.02 cm 98 % 98 % 44938.6 8 g 98.6 [degF] 85 /min 18 /min 125 mm[Hg] 88 mm[Hg] 125 mm[Hg] 88 mm[Hg] Not Available [email or web address] 2 20:18:02 Date Recorded Heart rate Oxygen saturation Oxygen saturation in Arterial blood by Pulse oximetry Respiratory rate Body temperature Systolic blood pressure Diastolic blood pressure Provider Name and Address Organization Details Last Updated DateTime 2 68 /min 98 % 98 % 16 /min 97.6 [degF] 140 mm[Hg] 92 mm[Hg] Not Available [employer] 2 16:43:45 Social History None recorded. Functional Status None recorded. Mental Status None recorded. Family History Nothing Reported. Medical History No medical history recorded. Gynecological HistoryNo gynecological history recorded. Obstetrics History GPAL:G 0 P 0 0 0 0 Past Encounters Encounter ID Performer Location Encounter Start Date Encounter Closed Date Diagnosis/Indication Diagnosis SNOMED-CT Code Diagnosis ICD10 Code Diagnosis Note [id number] Xiang Wang MD [facility] [address] [place] [phone] 03/02/2022 19:12:47 05/24/2022 12:11:23 Nausea, vomiting and diarrhea 2354546 R11.2 Nausea, vomiting, and diarrhea for almost a week, all most consistent with viral gastroente ritis. No preceding travel, antibiotic s, or bloody stool to suggest bacterial process. Vitals, CMP all unremarkab le. Given imodium, Zofran. Encouraged close PCP follow-up. [id number] Hodan Birmingham MD [facility] - [facility] [address] [place] [phone] 08/08/2022 16:43:33 08/10/2022 11:12:18 Acute atopic conjunctivitis 91757282 H10.11 56 year old female being evaluated for one day of itchy right eye. Patient reports mild blurring of the eye, without pain. Had a similar episode in the past that resolved with eye drops, although does not recall what eye drops, and has not used any this time.Exam today notable for normal vital signs, and slight conjunctiv al erythema with normal extraocula r movements and equally reactive pupils. Presentati on consistent with allergic conjunctiv itis, recommende d OTC allergy eyedrops for symptom relief. Contact PCP if persistent ly bothersome or worsened. [id number] Forrest Dorman MD [facility] - [facility] [address] [place] [phone] 11/11/2024 15:03:07 11/11/2024 22:28:25 Abdominal pain 85740916 R10.9 [id number] Winifred Dumont MD [facility] - [facility] [address] [place] [phone] 11/17/2024 12:53:48 11/17/2024 19:47:37 Pruritic rash 54129386 L28.2 since non vesicular/ crosses midline- not c/w herpes zoster- no benadryl with the hydroxyzin e- will treat symptomati jessica. Health Concerns Section Related Observation LastModified by Organization Detai ls LastModified Time None Recorded Concern Status LastModified by Organization Details LastModified Time None Recorded Advance Directives Directive None Recorded Payers Insurance Date Sequence Insurance Name Policy Number Policy Lloyd Covered Member ID Lloyd Member ID Guarantor Name 10/27/2023 1 [facility] - DOS PRIOR TO 2022 - DUAL ELIGIBLE (MEDICARE REPLACEMENT/ADV ANTAGE - HMO) Victoria Mosley [id number] Victoria Mosley 11/17/2024 1 [facility] - DOS ON OR AFTER 2022 - DUAL ELIGIBLE - S[employer]IOR [employer]IV[employer] OPTIONS AND ONE CARE (MEDICARE REPLACEMENT/ADV ANTAGE - HMO) Victoria Mosley [id number] Victoria Mosley Notes Date Note Type Note Provider Name and Address Organization Details Recorded Time 03/02/2022 text/html HPI: 56 y/o lebanese speaking female called to PCP clinic with reports of worsening nausea/vomiting and diarrhea for the last 7 days. Patient reports inability to consume food/fluids without having an episode of diarrhea/vomiting. Patient reports all over abdominal cramping during the episodes of diarrhea. Patient denies fever/chills at this time and states she performed a COVID test at home today and it was NEGATIVE. PCP is requesting assessment, POC CMP, UA, assess for dehydration and offer anti-emetic and IV hydration if appropriate. ...................... ...................... ...................... ...................... ...................... ...................... ......... CRC Nursing Assessment: Comments: CRC RN did not require any additional information to process this visit. ...................... ...................... ...................... ...................... ...................... ...................... ......... Filter Tender Jelly Note: Sent to a call for a pt complaining of nausea/vomiting/diarrh ea x 1 wk. SC8 arrives on scene, pt ambulates with a steady gait. Pt is alert and oriented. Airway is patent. Pt complains of n/v/d, and epigastric pain x 1 week. Pt denies headache, dizziness, cp, sob, hematemesis, blood in stool, fever or loc. Pt is able to tolerate limited PO food and liquid. Orthostatics: (sitting) BP:125/88, P:85, RR:18, SpO2:98% RA, T:98.6; (standing) 154/97, P:92; Lung sounds: clear bilaterally; Skin: pink, warm, and dry; good skin turgor; Abdomen: soft, non-tender, non-distended; [facility] orders POC CMP at PCP request, Zofran 4mg IV, and Loperamide 2mg PO; POC CMP results: uploaded to [employer]CODE; [facility] sends script to pt's pharmacy for Zofran. Red flags discussed. Pt has no further questions. ...................... ...................... ...................... ...................... ...................... ...................... ......... Disposition: Fulfilled Xiang Wang MD [address] [place] [address],[address] [facility], [place], [phone], [employer] [place] [employer] 03/02/2022 20:42:33 08/08/2022 text/html HPI: 56 y/o lebanese speaking female reports that she has been experiencing swollen and painful right eye since yesterday AM. Patient denies any fever/chills or congestion at this time. Patient endorses swelling and painful eye. ...................... ...................... ...................... ...................... ...................... ...................... ......... Filter Tender Jelly Note: PT complains of acute onset R eye pain and blurred vision x 1 day. PT denies provocation to affected eye and reports she has not scratched or touched that area. PT reports she has not attempted any eye drops or cold/ hot presses for reprieve. contacted and advised OTC allergy eye drops and follow up with PCP if symptoms don't subside in 48 hours. PT education was given related to OTC eye drop brands. VG ...................... ...................... ...................... ...................... ...................... ...................... ......... Disposition: Fulfilled Hodan Birmingham MD [address] [place] [address],[address], [place], [phone] [employer] 08/08/2022 21:43:57 11/11/2024 text/html CRC Nurse Triage Notes (Julee Smith): Reason For Request: pt has not felt well for several days Patient Reports: Vague abdominal pain greater than 24 hours; Nausea with or without vomiting; Inability to tolerate foods, fluids or daily medications Denies: Sharp focal or diffuse abdominal pain Vomiting blood/coffee ground material Bloating, jaundice new onset with pain Nausea and vomiting greater than 2 hours with abdominal pain Tearing pain that radiates to back Food Impaction Constipation Diarrhea ? no blood in stool Chief Complaints: Diarrhea, Nausea / Vomiting PMH: Anxiety Disorder, Gastroesophageal Reflux Disease (GERD) PMH Reviewed at 11/11/2024:48 Allergies Reviewed at 11/11/2024 12:48 Comments: Member c/o headache, vomiting/diarrhea x 2 days, c/o abdominal pain in epigastric area, chills, every time she eat- she vomits, unable to tolerate meds/food. also c/o lower back pain. PMH: reports having gastritis Member sounds in pain & sounds like she does not feel well Will place visit for red, explained referral process and response time. HPatterson RN Filter Tender Jelly Organization Information for [employer] Legal Name: [facility] Address: [address] [place] [address], [place] [address], Drawing In Machine Tender Helper: Aaron TSE No.: [id number] [employer]elly POC Test Results from [facility] Rapid influenza antigen (15:17:12) Flu: - Rapid COVID antigen (15:17:13) COVID: - ...................... ...................... ...................... ...................... ...................... ...................... ......... Filter Tender Jelly Note From [facility]: Patient alert and oriented complains of nausea, vomiting, diarrhea, upper epigastric pain and burning and dizziness for 24 hours. Patient denies current nausea reports she ate some soup just now. Patient reports this has happened in the past. Patient states she does not use heartburn medication. Patient denies black or bloody vomit, reports clear fluid. Patient denies any other pain or complaints. Patient pink warm and dry secondary exam unremarkable. Negative increased work of breathing. Abdominal tenderness noted midline upper epigastric area abdomen soft and non-tender in other areas. Negative edema noted. Patient negative for Covid and flu via rapid POC. [facility] advises, supportive care, will prescribe medication to patient? s local pharmacy. Red flags and the patient education discussed. Patient demonstrates understanding of care and plan. [facility] Lab Orders: rapid SARS CoV 2 Ag, QL IA, respiratory specimen: Performed rapid flu (A+B): Performed ...................... ...................... ...................... ...................... ...................... ...................... ......... [facility] Consulted: Forrest Dorman ...................... ...................... ...................... ...................... ...................... ...................... ......... Disposition: Fulfilled Forrest Dorman MD [address] [place] [address],[address], [place], [address], [employer] 11/11/2024 17:57:59 11/17/2024 text/html HPI: 58 YO Grenadian speaking female w PMH asthma, GERD, PTSD, osteopenia, osteoarthrosis, seasonal allergies. Calls in stating she has had a very itchy rash for 3 days which is raised in nature and red from her neck down to her chest. Denies rash on abdomen, legs, arms. She is on OTC cetirizine QD and tried Benadryl with no effect. It only helped her sleep, but now she is very uncomfortable. Sending [facility] for rash eval and treatment with PO meds or creams as indicated. Denies any new med changes, no working outside or traveling, no change in detergents or soaps. ...................... ...................... ...................... ...................... ...................... ...................... ......... [facility] Nurse Triage Notes (Gregory Funes): Chief Complaints: Rash PMH: Anxiety Disorder, Gastroesophageal Reflux Disease (GERD) PMH Reviewed at 11/17/2024 - : Allergies Reviewed at 11/17/2024: Comments: HPI reviewed by this RN, no further information needed to process visit -Ty Funes RN ...................... ...................... ...................... ...................... ...................... ...................... ......... Filter Tender Jelly Note From Herb Alex: Dispatched to the call address for the female with a rash. Pt states she has had a rash around the left side of her neck that distends down to her upper chest for 3 days now and it is painful (burning sensation) and very itchy. She has taken Benadryl and Calamine lotion without any effect. She has never had a rash like this before and denies any new foods, soaps, lotions, perfumes or any other new products/brands. She denies difficulty breathing or swallowing, chest pain, fevers, recent illnesses, n/v/d or any other complaints at this time. She is able to maintain PO hydration/nutrition. Pt was found sitting on edge of bed, CAOx4, airway open and patent, breathing non labored, able to speak in full sentences, -JVD, -HEENT, skin PWD with good turgor, mucous membranes pink and moist, lungs CTA, abd soft non tender/distended, pupils PERRL,-JVD, -HEENT, -edema/swelling, afebrile. Noticeable red/bumpy rash that starts posterior neck and wraps around left side of neck and extends to top of chest and starts to go to right side of neck. No pustules noted. [facility] consulted. Pt given 40mg Prednisone PO after confirming 5 rights. Script called into preferred pharmacy. Pt advised to follow up with PCP. Pt was advised that scripts should help with the symptoms but it is not possible for us to diagnose the cause. Red flags discussed. ALL times are approx. [facility] Medication Orders: prednisone 20 mg tablet: Administered ...................... ...................... ...................... ...................... ...................... ...................... ......... [facility] Consulted: Winifred Dumont ...................... ...................... ...................... ...................... ...................... ...................... ......... Disposition: Fulfilled Winifred Dumont MD [address] [facility],[address], [place], [address], [employer] 11/17/2024 14:09:52 OBGyn Episode No OBEpisode recorded.
== END 2025-02-12 13:43 | disposition home or self-care (01) ==
LOC: HO.HGI 12:46
PROVIDERS: PCP Registered Nurse; Visit Provider Nurse Practitioner Family
DX: R10.13 Epigastric pain (principal); Z12.11 Encounter for screening for malignant neoplasm of colon
CPT/HCPCS: 99214

== ENCOUNTER → 2025-02-12 12:45 | Outpatient (BNVA) | payer OTHER, SELFPAY | PROVIDERS: PCP Registered Nurse; Visit Provider Nurse Practitioner Family | DX: Z12.11 Encounter for screening for malignant neoplasm of colon (principal); R10.13 Epigastric pain; Z71.3 Dietary counseling and surveillance | CPT/HCPCS: 99212 ==

== ENCOUNTER 2025-03-11 08:35 | Outpatient (REF) | payer OTHER, SELFPAY ==
--- OUTSIDE RECORDS SUMMARY | 2025-03-11 08:46 | XMS_ITS | Data Portability ---
Author Organization [employer], [facility] Address [address] [place] [address] Care Team Providers Care Legal Executive Name Role Phone HIM CCA OTHER Assessment Encounter Date Assessment Date Assessment LastModified by Organization Details LastModified Time 11/11/2024 11/11/2024 I have reviewed and agree with the Assessment and Plan as documented by the Sales Representative [employer]. I provided real-time medical direction via phone [...] visit conducted with the aid of medical fee clerk (Cypriot) pallfather Not available 11/11/2024 17:57:49 11/17/2024 11/17/2024 I provided real -time medical direction via phone for this encounter, and was available for additional phone based assistance as needed. I have reviewed and agree with the Assessment and Plan as documented by the Sales Representative [employer]. We discussed the diagnostic uncertainty of home [...] to call 911- verbalized understanding of instruction [email or web address] Not available 11/17/2024 13:09:13 Plan of Treatment Reminders Order Date Submit Date Provider Last Modified By Organization Details Last Modified Time Details Appointments None recorded. Lab rapid SARS CoV 2 Ag, QL IA, respiratory specimen 2024 025 [facility], [address] [place] [address], [phone] 5 16:13:35 rapid flu (A+B) [address], [phone] 5 16:13:54 cmp, whole blood + beny [address], [phone] 19:18:47 Referral None recorded. Procedures None recorded. Surgeries None recorded. Imaging None recorded. Medication Orders prednisone 20 mg tablet 2024 025 [email or web address] [facility]/Pharmacy #[id number], [address] [place], [address], 5 13:06:51 prednisone 20 mg tablet 2024 025 [id number] [address] [place], [address], 5 13:06:53 hydroxyzine HCl 25 mg tablet 2024 025 [facility]/Pharmacy #[id number], [address] [place], [address], 5 13:06:53 triamcinolo ne acetonide 0.1 % topical ointment 2024 025 [id number] [address] [place], [address], 5 13:06:54 sucralfate 100 mg/mL oral suspension 2024 025 [facility]/Pharmacy #[id number], [address] [place], [address], 5 16:07:43 ondansetron HCl (PF) 4 mg/2 mL injection solution 2021 022 [email or web address] Not available 19:17:11 Imodium A-D 2 mg capsule 2021 022 [email or web address] Not available 19:17:11 ondansetron 4 mg disintegrat ing tablet 2021 022 [facility]/Pharmacy #[id number], [address] [place], [address], 19:17:13 Patient TargetsNo targets recorded. Patient InstructionsNo instructions recorded. Reason for Referral None Reported. Results Created Date Observation Date Name Description Value Unit Range Abnormal Flag Note LastModifiedBy Organization Detail LastModifiedTime 03/02/20 22 03/02/2022 cmp, whole blood + picco lo ALB 4.3 Not Available [facility] - [facility] [address], [address] 03/02/2022 19:17:18 03/02/20 22 03/02/2022 cmp, whole blood + picco lo ALP 129 Not Available Main - [facility] [address], [address] 03/02/2022 19:17:18 03/02/20 22 03/02/2022 cmp, whole blood + picco lo ALT 12 Not Available Main - [facility] [address], [address] 03/02/2022 19:17:18 03/02/20 22 03/02/2022 cmp, whole blood + picco lo AST 26 Not Available Main - [facility] [address], [address] 03/02/2022 19:17:18 03/02/20 22 03/02/2022 cmp, whole blood + picco lo BUN 13 Not Available Main - [facility] [address], [address] 03/02/2022 19:17:18 03/02/20 22 03/02/2022 cmp, whole blood + picco lo Ca 9.8 Not Available Main - [facility] [address], [address] 03/02/2022 19:17:18 03/02/20 22 03/02/2022 cmp, whole blood + picco lo CI- normal Not Available Main - [facility] [address], [address] 03/02/2022 19:17:18 03/02/20 22 03/02/2022 cmp, whole blood + picco lo CRE 0.9 Not Available Main - [facility] [address], [address] 03/02/2022 19:17:18 03/02/20 22 03/02/2022 cmp, whole blood + picco lo GLU 96 Not Available Main - [facility] [address], [address] 03/02/2022 19:17:18 03/02/20 22 03/02/2022 cmp, whole blood + picco lo K+ 3.6 Not Available Main - [facility] [address], [address] 03/02/2022 19:17:18 03/02/20 22 03/02/2022 cmp, whole blood + picco lo Na+ 146 Not Available Main - [facility] [address], [address] 03/02/2022 19:17:18 03/02/20 22 03/02/2022 cmp, whole blood + picco lo TBIL 0.7 Not Available Main - [facility] [address], [address] 03/02/2022 19:17:18 03/02/20 22 03/02/2022 cmp, whole blood + picco lo tCO2 24 Not Available Main - [facility] [address], [address] 03/02/2022 19:17:18 03/02/20 22 03/02/2022 cmp, whole blood + picco lo TP 8.4 Not Available Main - [facility] [address], [address] 03/02/2022 19:17:18 11/12/1911/11/2024 rapid flu (A+B) Flu negati ve Not Available Main - [facility] ed [address] [place] [address], [phone] 11/11/2024 15:04:36 11/12/19 25 11/11/2024 rapid SARS CoV 2 Ag, QL IA, respi rator y speci men rapid SARS CoV 2 Ag, QL IA, respiratory specimen negati ve Not Available Main - [facility] ed [address] [place] [address], [phone] 11/11/2024 15:04:32 Result Notes None recorded. Medical [...] blood by Pulse oximetry Body height Systolic And Diastolic Provider Name and Address Organization Details Last Updated DateTime 5 62 /min 06221.6 g 98 [degF] 14 /min 98 % 98 % 152.4 cm 152/89 mm[Hg] Not Available [employer] [facility] [employer] 5 15:03:10 Date Recorded Respiratory rate Oxygen saturation Oxygen saturation in Arterial blood by Pulse oximetry Heart rate Body temperature Systolic And Diastolic Provider Name and Address Organization Details Last Updated DateTime 5 16 /min 99 % 99 % 67 /min 98.4 [degF] 118/70 mm[Hg] Not Available [employer] 5 12:54:56 Date Recorded Body weight Body temperature Heart rate Respiratory rate Oxygen saturation Oxygen saturation in Arterial blood by Pulse oximetry Body height Body height Oxygen saturation Oxygen saturation in Arterial blood by Pulse oximetry Body weight Body temperature Provider Name and Address Organization Details Last Updated DateTime 2 09741.6 8 g 98.6 [degF] 85 /min 18 /min 98 % 98 % 160.02 cm 160.02 cm 98 % 98 % 74578.6 8 g 98.6 [degF] Not Available [employer] 2 20:18:02 Date Recorded Heart rate Respiratory rate Systolic And Diastolic Systolic And Diastolic Provider Name and Address Organization Details Last Updated DateTime 03/02/2022 85 /min 18 /min 125/88 mm[Hg] 125/88 mm[Hg] Not Available [employer] 2 20:18:02 Date Recorded Heart rate Oxygen saturation Oxygen saturation in Arterial blood by Pulse oximetry Respiratory rate Body temperature Systolic And Diastolic Provider Name and Address Organization Details Last Updated DateTime 2 68 /min 98 % 98 % 16 /min 97.6 [degF] 140/92 mm[Hg] Not Available [employer] 2 16:43:45 Social History None recorded. Functional [...] Note 2471 Xiang Wang MD Main - [address] [phone] 03/02/2022 19:12:47 05/24/2022 12:11:23 Nausea, vomiting and diarrhea 9930322 R11.2 Nausea, vomiting, and diarrhea for almost a week, all most consistent with viral gastroente ritis. No preceding travel, antibiotic s, or bloody stool to suggest bacterial process. Vitals, CMP all unremarkab le. Given imodium, Zofran. Encouraged close PCP follow-up. 5933 Hodan Birmingham MD Main - [facility] [address] [place] [phone] 08/08/2022 16:43:33 08/10/2022 11:12:18 Acute atopic conjunctivitis 75907099 H10.11 56 year old female being evaluated [...] PCP if persistent ly bothersome or worsened. [id number] Forrest Dorman MD Main - [facility] [address] [place] [phone] 11/11/2024 15:03:07 11/11/2024 22:28:25 Abdominal pain 14270550 R10.9 [id number] Winifred Dumont MD Main - [facility] [address] [place] [phone] 11/17/2024 12:53:48 11/17/2024 19:47:37 Pruritic rash 53534397 L28.2 since non vesicular/ crosses midline- not [...] Lloyd Member ID Guarantor Name 10/27/2023 1 [facility] - DOS PRIOR TO 2022 - DUAL ELIGIBLE (MEDICARE REPLACEMENT/ADV ANTAGE - HMO) Victoria Mosley [id number] Vicotria Mosley 11/17/2024 1 [facility] - DOS ON OR AFTER 2022 - DUAL ELIGIBLE - INTERMEDIATE OPTIONS AND ONE CARE (MEDICARE REPLACEMENT/ADV ANTAGE - HMO) Victoria Mosley [id number] Victoria Mosley Notes Date Note Type Note Provider Name and Address Organization Details Recorded Time 03/02/2022 text/html HPI: 56 y/o hungarian speaking female called to PCP clinic with [...] ...................... ...................... ...................... ...................... ...................... ...................... ......... [employer] Note: Sent to a call for a [...] good skin turgor; Abdomen: soft, non-tender, non-distended; [facility] orders POC CMP at PCP request, Zofran 4mg IV, and Loperamide 2mg PO; POC CMP results: uploaded to [facility]; [facility] sends script to pt's pharmacy for Zofran. Red flags discussed. Pt has no further questions. ...................... ...................... ...................... ...................... ...................... ...................... ......... Disposition: Fulfilled Xiang Wang MD [address] [place] [address],[address], [place], [address], [employer] 03/02/2022 20:42:33 08/08/2022 text/html HPI: 56 y/o hungarian speaking female reports that she has been experiencing swollen and painful right eye since yesterday AM. Patient denies any fever/chills or congestion at this time. Patient endorses swelling and painful eye. ...................... ...................... ...................... ...................... ...................... ...................... ......... [employer] Note: PT complains of acute onset R [...] ...................... ......... Disposition: Fulfilled Hodan Birmingham MD [address] [place] [address],[address], [place], [address], [employer] 08/08/2022 21:43:57 11/11/2024 text/html CRC Nurse Triage [...] radiates to back Food Impaction Constipation Diarrhea no blood in stool Chief Complaints: Diarrhea, Nausea / Vomiting PMH: Anxiety Disorder, Gastroesophageal Reflux Disease (GERD) PMH Reviewed at 11/11/2024:48 Allergies Reviewed at 11/11/2024:48 Comments: Member c/o headache, vomiting/diarrhea x 2 days, c/o abdominal pain in epigastric area, chills, every time she eat- she vomits, unable to tolerate meds/food. also c/o lower back pain. PMH: reports having gastritis Member sounds in pain & sounds like she does not feel well Will place visit for red, explained referral process and response time. Matti GARCIA Sales Representative [employer] Organization Information for [employer] Business Legal Name: [facility] Transportation Address: [address] [place] [address], [place] [id number], Patternmaker Helper: Aaron TSE No.: [id number] [employer] POC Test Results from [employer] Rapid influenza antigen (15:17:12) Flu: - Rapid COVID antigen (15:17:13) COVID: - ...................... ...................... ...................... ...................... ...................... ...................... ......... [employer] Note From [employer]: Patient alert and [...] for Covid and flu via rapid POC. [facility] advises, supportive care, will prescribe medication to patient s local pharmacy. Red flags and the patient education discussed. Patient demonstrates understanding of care and plan. [facility] Lab Orders: rapid SARS CoV 2 Ag, QL IA, respiratory specimen: Performed rapid flu (A+B): Performed ...................... ...................... ...................... ...................... ...................... ...................... ......... [facility] Consulted: Forrest Dorman ...................... ...................... ...................... ...................... ...................... ...................... ......... Disposition: Fulfilled Forrest Dorman MD [address] [place] [address],[address], [place], [address], [employer] 11/11/2024 17:57:59 11/17/2024 text/html HPI: 58 YO Cypriot speaking female w PMH asthma, GERD, PTSD, [...] ...................... ...................... ...................... ...................... ...................... ......... [facility] Nurse Triage Notes (Gregory Funes): Chief Complaints: Rash PMH: Anxiety Disorder, Gastroesophageal Reflux Disease (GERD) PMH Reviewed at 11/17/2024: Allergies Reviewed at 11/17/2024: Comments: HPI reviewed by this RN, no further information needed to process visit -Ty Funes RN ...................... ...................... ...................... ...................... ...................... ...................... ......... [employer] Note From Herb Alex: Dispatched to the [...] right side of neck. No pustules noted. [facility] consulted. Pt given 40mg Prednisone PO after confirming 5 rights. Script called into preferred pharmacy. Pt advised to follow up with PCP. Pt was advised that scripts should help with the symptoms but it is not possible for us to diagnose the cause. Red flags discussed. ALL times are approx. [facility] Medication Orders: prednisone 20 mg tablet: Administered ...................... ...................... ...................... ...................... ...................... ...................... ......... [facility] Consulted: Winifred Dumont ...................... ...................... ...................... ...................... ...................... ...................... ......... Disposition: Nilton Dumont MD [address] [facility],[address], [place], [address], [employer] 11/17/2024 14:09:52 OBGyn Episode No OBEpisode recorded.
[2025-03-11 14:04] LABS: MANUAL DIFF FLAG NO
[2025-03-11 14:15] LABS: Hematocrit 37.9 % (37.0-47.0); Hemoglobin 12.7 g/dl (12.0-16.0); Imm Gran Abs Auto 0.02 X10*3/uL (0.00-0.03); Imm Gran Pct Auto 0.3 % (0.0-0.4); Lymphocytes Absolute Auto 2.0 X10*3/uL (1.2-4.9); Mean Corpuscular HGB Conc 33.5 g/dl (31.0-35.0); Mean Corpuscular Hemoglobin 30.9 pg (27.0-33.0); Mean Corpuscular Volume 92.2 fL (80.0-98.0); NRBC Abs Auto 0.000 X10*3/uL (0.0-0.012); NRBC Pct Auto 0.0 /100WBC (0.0-0.2); Platelet Count 250 X10*3/uL (160-400); Red Blood Count 4.11 X10*6/uL (4.20-5.50); White Blood Count 6.2 X10*3/uL (4.8-10.8)
[2025-03-11 14:47] LABS: Alanine Aminotransferase 14 U/L (0-31); Albumin Level 4.7 g/dL (3.5-5.0); Alkaline Phosphatase 92 U/L (39-117); Anion Gap 13 (12-20); Aspartate Amino Transferase 23 U/L (5-31); Blood Urea Nitrogen 13 mg/dL (9-16); Calcium 10.0 mg/dL (8.4-10.2); Carbon Dioxide 27 mmol/L (22-29); Chloride 108 mmol/L (96-108); Estimated Glomerular Filt Rate > 60; Iron 89 mcg/dL (30-160); Percent Iron Saturation 38 % (15-50); Potassium 5.0 mmol/L (3.3-5.1); Sodium 143 mmol/L (135-145); Total Iron Binding Capacity 236 mcg/dL (228-428); Total Protein 7.8 g/dL (6.5-8.0); Unsaturated Iron Binding 147 ug/dL
== END 2025-03-11 08:36 | disposition home or self-care (01) ==
LOC: HO.HKASLDS 08:35
PROVIDERS: Visit Provider Nurse Practitioner Family
DX: R10.9 Unspecified abdominal pain (principal)
CPT/HCPCS: 36415; 80053; 83540; 85025; 86140; 86364

== ENCOUNTER 2025-04-23 11:45 | Outpatient (REF) | payer OTHER, SELFPAY ==
[2025-04-29 20:29] LABS: Calprotectin, Fecal 27 mcg/g
== END 2025-04-23 11:46 | disposition home or self-care (01) ==
LOC: HO.HKASLDS 11:45
PROVIDERS: Visit Provider Nurse Practitioner Family
DX: R19.7 Diarrhea, unspecified (principal)
CPT/HCPCS: 83993